=== PATIENT | male | born 1960 | race Caucasian/White ===

== ENCOUNTER 2017-03-01 07:03 | Emergency (ER) | payer BC ==
[~2017-03-01] VITALS: Ht 182.9 cm; Wt 106.8 kg
[~2017-03-01 07:03] MED LIST: FLOMAX0.4 MG PO; SEPTRA DS TABL1 EACH PO; TRAMADOL HCL50 MG PO; TYLENOL REGULA325 MG PO; VIAGRA100 MG PO; ZOFRAN ODT4 MG PO
[2017-03-01 09:20] LABS: ADD MIUA? NO; BILIRUBIN NEGATIVE; BLOOD NEGATIVE; COLOR YELLOW ((YELLOW)); GLUCOSE (STRIP) 50; KETONES NEGATIVE; LEUKOCYTES NEGATIVE; NITRITE NEGATIVE; PROTEIN (STRIP) NEGATIVE; SPECIFIC GRAVITY 1.024 (1.000-1.030); UROBILINOGEN 0.2 MG/DL (0.2-1.0)
[2017-03-01] MEDS ORDERED: FLEXERIL10 MG PO (10:10)
[2017-03-01] MEDS ORDERED: PERCOCET 5/31 TABLET PO (10:10)
[2017-03-01] MEDS ORDERED: PREDNISONE20 MG PO (10:10)
[2017-03-01] MEDS ORDERED: STOOL SOFTENER240 MG PO (10:10)
[2017-03-01 10:25] VITALS: BP 120/63
== END 2017-03-01 10:36 | disposition home or self-care (01) ==
LOC: EME 07:03
PROVIDERS: Nurse Practitioner Family
DX: M62.830 Muscle spasm of back (principal); Z87.891 Personal history of nicotine dependence
CPT/HCPCS: 72100; 81003; 99281; 99284; J3010; J7512